=== PATIENT | female | born 1985 | race Caucasian/White ===

== ENCOUNTER 2020-09-19 12:10 | Day surgery (SDC) | payer OTHER ==
[2020-09-19 12:38] VITALS: BMI 24.7
[2020-09-19 14:09] LABS: BASO % 0.6 % (0-2.0); EOS % 2.7 % (0-4.5); HEMOGLOBIN 11.3 GM/dL (10.7-15.3); MCH 23.2 pg (25.7-33.7); MCHC 32.4 g/dl (32.0-36.0); MEAN CELL VOLUME 71.8 fl (80-96); MEAN PLT VOLUME 7.6 fl (7.5-11.1); MONO % 8.2 % (3.8-10.2); NEUT % 68.5 % (42.8-82.8); PLATELET COUNT 375 K/MM3 (134-434); RBC 4.87 M/mm3 (3.60-5.2); RDW 17.8 % (11.6-15.6); WHITE BLOOD COUNT 7.5 K/mm3 (4.0-10.0)
[2020-09-19 14:14] LABS: EPI CELLS 30 /uL (0-25.1); HYALINE CASTS 3 /uL (0-3.1); PH,URINE 6.5 (5.0-8.0); URINE APPEARANCE CLEAR; URINE BACTERIA >9,000 /uL (0-1359); URINE BILIRUBIN NEGATIVE (NEGATIVE); URINE COLOR YELLOW; URINE GLUCOSE (UA) NEGATIVE (NEGATIVE); URINE KETONE NEGATIVE (NEGATIVE); URINE LEUK ESTERASE TRACE (NEGATIVE); URINE NITRITE NEGATIVE (NEGATIVE); URINE PROTEIN NEGATIVE (NEGATIVE); URINE RBC 7 /uL (0-23.9); URINE WBC 20 /uL (0-25.8)
[2020-09-19 14:17] LABS: INR 0.89 (0.83-1.09)
[2020-09-19 14:35] LABS: POTASSIUM 3.9 mmol/L (3.5-5.1)
[2020-09-19] MEDS ORDERED: SODIUM CHLORIDE 1,000 ML IV STA (14:36)
[2020-09-19 14:37] LABS: CALCIUM 9.2 mg/dL (8.5-10.1)
[2020-09-19 14:38] LABS: ALBUMIN 3.4 g/dl (3.4-5.0); BLOOD UREA NITROGEN 9.6 mg/dL (7-18)
[2020-09-19 14:41] LABS: CREATININE 0.6 mg/dL (0.55-1.3)
[2020-09-19 14:43] LABS: BILIRUBIN,TOTAL 0.2 mg/dL (0.2-1); TOT PROT 7.3 g/dl (6.4-8.2)
[2020-09-19] MEDS ORDERED: SODIUM CHLORIDE 1,000 ML IV SCH (16:00)
[2020-09-19] MEDS ORDERED: ONDANSETRON 4 MG/2 ML VIAL IVPUSH PRN (16:12)
[2020-09-19] MEDS ORDERED: oxyCODONE HCL 5 MG TABLET PO PRN (16:12)
[2020-09-19] MEDS ORDERED: LACTATED RINGERS SOLUTION 1,000 ML IV SCH (16:15)
[2020-09-19] MEDS ORDERED: MIDAZOLAM HCL 2 MG/2 ML SINGLE DOSE VIAL ONE ×2 (16:15→18:44)
[2020-09-19] MEDS ORDERED: NEOSTIGMINE METHYLSULFATE 0.5 MG/ML - 10 ML MDV ONE ×2 (18:01→18:21)
[2020-09-19] MEDS ORDERED: PROPOFOL 20 ML ONE ×2 (18:44)
[2020-09-19] MEDS ORDERED: ROCURONIUM BROMIDE 50 MG/5 ML SYRINGE ONE (18:44)
[2020-09-19] MEDS ORDERED: ONDANSETRON 4 MG/2 ML VIAL ONE (18:49)
[2020-09-19] MEDS ORDERED: KETOROLAC TROMETHAMINE 30 MG/1 ML VIAL ONE (19:17)
[2020-09-19 20:20] VITALS: BP 113/72; PULSE 64
[2020-09-19 20:21] VITALS: TEMP 97.9
== END 2020-09-19 20:20 | disposition home or self-care (01) ==
LOC: JASUSAT 12:10
PROVIDERS: ATTEND Student in an Organized Health Care Education/Training Program
PROC: 0UT64ZZ Resection of Left Fallopian Tube, Percutaneous Endoscopic Approach (ICD-10-PCS; 2020-09-19)
PROC: 10T24ZZ Resection of Products of Conception, Ectopic, Percutaneous Endoscopic Approach (ICD-10-PCS; principal; 2020-09-19 16:09)
DX: O00.102 Left tubal pregnancy without intrauterine pregnancy (principal)
CPT/HCPCS: 36415; 76817-TC; 80053; 81003; 84702; 85025; 85610; 86850; 86900; 86901; 87086; 87186; 88305-TC; 94760; 99284-25